=== PATIENT | male | born 1970 | race Caucasian/White ===

== ENCOUNTER 2019-04-07 08:48 | Emergency (ER) | payer OTHER ==
[2019-04-07] MEDS: KETOROLAC 30 MG INJ IM (09:46)
== END 2019-04-07 10:17 | disposition home or self-care (01) ==
LOC: FTE 08:48
DX: S16.1XXA Strain of muscle, fascia and tendon at neck level, initial encounter (principal); I10 Essential (primary) hypertension; S29.012A Strain of muscle and tendon of back wall of thorax, initial encounter; X50.0XXA Overexertion from strenuous movement or load, initial encounter; Y92.9 Unspecified place or not applicable
CPT/HCPCS: 93005; 96372; 99284-25